=== PATIENT | female | born 1940 | race African-American/Black ===

== ENCOUNTER 2018-08-17 12:01 | Inpatient (IN) | payer MEDICARE, OTHER ==
[~2018-08-17] VITALS: Ht 157.5 cm; Wt 53.8 kg
[2018-08-17] MEDS ORDERED: CARV25TA12 PO (12:22)
[2018-08-17] MEDS ORDERED: AMLO10TA8 PO (12:22)
[2018-08-17] MEDS ORDERED: ASPI-496 PO (12:22)
[2018-08-17] MEDS ORDERED: LEVO25TA4 PO (12:22)
[2018-08-17] MEDS ORDERED: ATOR20TA PO (12:22)
[2018-08-17] MEDS ORDERED: HYDR-3342 PO (12:22)
[2018-08-17] MEDS ORDERED: ISOS30TA8 PO (12:22)
[2018-08-17] MEDS ORDERED: INSU100V8 SQ (12:24)
[2018-08-17] MEDS ORDERED: SODIUM CHLORIDE FLUSH 10ML SYR IVF ONE (12:30)
[2018-08-17] MEDS ORDERED: PLEASE ENTER ALLERGIES MC SCH (12:30)
[2018-08-17 12:35] LABS: MEAN CORPUSCULAR HEMOGLOBIN 31.9 pg (27.0-34.8); MEAN CORPUSCULAR HGB CONC 32.8 g/dL (32.4-35.8); MEAN CORPUSCULAR VOLUME 97.1 fL (80-100); MEAN PLATELET VOLUME 7.2 fL (7.4-10.4); PLATELET COUNT 200 x10^3/uL (130-400); RED BLOOD COUNT 3.38 x10^6/uL (3.82-5.3); RED CELL DISTRIBUTION WIDTH 13.4 % (9.6-15.2)
--- NOTE | 2018-08-17 12:35 | NUR ---
BIB [facility] d/t sob since last night. pt lives in [place] but visit daughter at [place] . pt has developing sob and diarrhea since last night . hx of CHF ESRD on dialysis ( m w ) . asthma with home oxygen 2 liter. pt was on 10 liters mask when arrival via [facility] in [id number] daughter at be dside
[2018-08-17 12:46] LABS: INTERNATIONAL NORMALIZED RATIO 1.02 (0.93-1.1); PROTHROMBIN TIME 10.8 Seconds (9.6-11.5)
[2018-08-17 12:48] LABS: ALBUMIN 3.7 g/dL (3.4-5.0); ANION GAP 10 mmol/L (5-15); CALCIUM 9.3 mg/dL (8.5-10.1); CHLORIDE 101 mmol/L (98-107)
[2018-08-17 12:51] LABS: MD YES; TROPONIN I 0.021 ng/mL (0.000-0.045)
[2018-08-17 12:53] LABS: <PLATELET ESTIMATE> ADEQUATE; <PLT MORPHOLOGY> NORMAL PLT MORPH; <RBC MORPHOLOGY> NORMAL; BAND#(MANUAL) 0.18 x10^3/uL; BANDS%(MANUAL) 1 % (0-7); LYMPH#(MANUAL) 0.73 x10^3/uL (1-3.4); LYMPHS% (MANUAL) 4 % (22-44); MONOS#(MANUAL) 0.37 x10^3/uL (0.3-2.7); MONOS% (MANUAL) 2 % (2-9); SEG#(MANUAL) 17.02 x10^3/uL (1.8-6.8); SEGS% (MANUAL) 93 % (42-75)
[2018-08-17] MEDS ORDERED: CEFTRIAXONE 1,000 MG in SODIUM CHLORIDE 0.9% 50 ML IVPB ONE (13:00)
[2018-08-17] MEDS ORDERED: AZITHROMYCIN 500 MG in SODIUM CHLORIDE 0.9% 250 ML IVPB ONE (13:00)
[2018-08-17] MEDS ORDERED: CEFTRIAXONE PMX 1GM/50ML 50 ML ONE (13:19)
[2018-08-17] MEDS ORDERED: DEXTROSE 50%, 50ML SYRINGE IVPush ONE (13:30)
[2018-08-17] MEDS ORDERED: CALCIUM CHLORIDE 10%, 10ML SYR IVPush ONE (13:30)
[2018-08-17] MEDS ORDERED: SODIUM CHLORIDE FLUSH 10ML SYR IVF PRN (13:30)
[2018-08-17] MEDS ORDERED: INSULIN REGULAR 100 UNITS/ML, 3ML VIAL IVPush ONE (13:30)
--- NOTE | 2018-08-17 13:46 | NUR ---
given report to hemodialysis patient care specialist
--- NOTE | 2018-08-17 13:54 | NUR ---
report given to floor rn
[2018-08-17] MEDS: HEPARIN 5,000 UNITS/ML, 1ML SQ SCH (14:30)
[2018-08-17] MEDS ORDERED: LABETALOL 5MG/ML, 20ML IVPush PRN (14:30)
[2018-08-17] MEDS ORDERED: CALCIUM GLUCONATE 4.6 MEQ in SODIUM CHLORIDE 0.9% 50 ML IV ONE (14:30)
[2018-08-17] MEDS: VANCOMYCIN 50 MG/ML ORAL SUSP PO SCH ×2 (14:30→21:09)
[2018-08-17] MEDS ORDERED: LIDOCAINE/PRILOCAINE CRM W/TEG 5GM TP ONE (14:30)
[2018-08-17 15:06] LABS: CALCIUM 9.2 mg/dL (8.5-10.1)
[2018-08-17 15:07] LABS: % IRON SATURATION 8 % (20-55); IRON LEVEL 14 mcg/dL (50-170); TOTAL IRON BINDING CAPACITY 172 mcg/dL (250-450)
[2018-08-17 15:10] LABS: TROPONIN I 0.033 ng/mL (0.000-0.045)
[2018-08-17 15:53] LABS: HEMOGLOBIN A1C 7.7 % (4.2-6.3)
[2018-08-17] MEDS: INSULIN LISPRO 100 UNITS/ML, PEN SQ-INSULIN SCH ×2 (16:00→21:10)
[2018-08-17 19:29] LABS: ANION GAP 10 mmol/L (5-15); CALCIUM 9.7 mg/dL (8.5-10.1); CHLORIDE 99 mmol/L (98-107); CREATININE 5.23 mg/dL (0.55-1.02)
[2018-08-17 20:30] LABS: TROPONIN I 0.017 ng/mL (0.000-0.045)
[2018-08-17 21:09] VITALS: BP 149/68
[2018-08-17] MEDS: ATORVASTATIN 20 MG TABLET PO SCH (21:09)
[2018-08-17] MEDS: DOXYCYCLINE 100MG CAP PO SCH (21:13)
[2018-08-18] MEDS: HEPARIN 5,000 UNITS/ML, 1ML SQ SCH ×2 (00:08→08:00)
[2018-08-18] MEDS ORDERED: ACETAMINOPHEN 325 MG TABLET PO PRN (00:30)
[2018-08-18 02:00] VITALS: BP 162/70
[2018-08-18] MEDS: VANCOMYCIN 50 MG/ML ORAL SUSP PO SCH (03:10)
[2018-08-18 05:45] LABS: ALANINE AMINOTRANSFERASE 15 U/L (12-78); ALBUMIN 3.2 g/dL (3.4-5.0); ANION GAP 11 mmol/L (5-15); CALCIUM 9.2 mg/dL (8.5-10.1); CHLORIDE 99 mmol/L (98-107); CREATININE 7.15 mg/dL (0.55-1.02)
[2018-08-18 05:48] LABS: ALKALINE PHOSPHATASE 100 U/L (45-117); BILIRUBIN,TOTAL 0.9 mg/dL (0.2-1.0)
[2018-08-18 06:40] LABS: BASOPHILS # (AUTO) 0.02 x10^3/uL (0-0.1); BASOPHILS % (AUTO) 0 % (0-1); EOSINOPHILS # (AUTO) 0.01 x10^3/uL (0-0.4); EOSINOPHILS % (AUTO) 0 % (1-7); LYMPHOCYTES % (AUTO) 7 % (22-44); MD NO; MEAN CORPUSCULAR HEMOGLOBIN 32.2 pg (27.0-34.8); MEAN CORPUSCULAR VOLUME 97.5 fL (80-100); MEAN PLATELET VOLUME 7.4 fL (7.4-10.4); MONOCYTES # (AUTO) 0.79 x10^3/uL (0.2-0.8); MONOCYTES % (AUTO) 8 % (2-9); NEUTROPHILS # (AUTO) 8.96 x10^3/uL (1.8-6.8); NEUTROPHILS % (AUTO) 86 % (42-75); PLATELET COUNT 184 x10^3/uL (130-400); RED BLOOD COUNT 3.29 x10^6/uL (3.82-5.3); RED CELL DISTRIBUTION WIDTH 13.5 % (9.6-15.2)
[2018-08-18] MEDS: INSULIN LISPRO 100 UNITS/ML, PEN SQ-INSULIN SCH ×4 (07:00→21:18)
[2018-08-18 08:17] VITALS: BP 176/50
[2018-08-18] MEDS: DOXYCYCLINE 100MG CAP PO SCH ×2 (08:46→20:59)
[2018-08-18] MEDS: ASPIRIN 81 MG TABLET EC PO SCH (08:47)
[2018-08-18] MEDS: AMLODIPINE 10 MG TAB PO SCH (08:47)
[2018-08-18] MEDS: LEVOTHYROXINE 25 MCG TABLET PO SCH (08:47)
[2018-08-18] MEDS: ISOSORBIDE MONONITRATE ER 30 MG TABLET PO SCH (08:48)
[2018-08-18] MEDS ORDERED: CARVEDILOL 25 MG TABLET PO SCH (09:00)
[2018-08-18] MEDS ORDERED: MEROPENEM 1 GM in SODIUM CHLORIDE 0.9% 100 ML IV SCH (09:00)
[2018-08-18] MEDS ORDERED: ARANESP 25 MCG/ML **ESRD SQ SCH (10:00)
[2018-08-18] MEDS: IRON SUCROSE COMPLEX 100MG/5ML IV SCH (10:26)
[2018-08-18] MEDS: CALCITRIOL 0.25 MCG CAPSULE PO SCH (10:27)
[2018-08-18 12:55] LABS: CLOSTRIDIUM DIFFICILE ANTIGEN NEGATIVE; CLOSTRIDIUM DIFFICILE TOXIN NEGATIVE (Negative)
[2018-08-18 13:01] VITALS: BP 165/64
[2018-08-18] MEDS: CARVEDILOL 12.5 MG TABLET PO SCH (17:10)
[2018-08-18 18:50] VITALS: BP 154/54
[2018-08-18] MEDS: ATORVASTATIN 20 MG TABLET PO SCH (20:59)
[2018-08-19 02:20] VITALS: BP 173/70
[2018-08-19 02:21] VITALS: BP 171/66
[2018-08-19] MEDS: CARVEDILOL 12.5 MG TABLET PO SCH ×2 (05:27→17:39)
[2018-08-19 05:32] VITALS: BP 169/54
[2018-08-19 05:54] LABS: BASOPHILS % (AUTO) 0 % (0-1); EOSINOPHILS # (AUTO) 0.15 x10^3/uL (0-0.4); EOSINOPHILS % (AUTO) 2 % (1-7); LYMPHOCYTES # (AUTO) 0.66 x10^3/uL (1-3.4); LYMPHOCYTES % (AUTO) 9 % (22-44); MD NO; MEAN CORPUSCULAR HEMOGLOBIN 34.8 pg (27.0-34.8); MEAN CORPUSCULAR HGB CONC 34.7 g/dL (32.4-35.8); MEAN CORPUSCULAR VOLUME 100.1 fL (80-100); MEAN PLATELET VOLUME 7.8 fL (7.4-10.4); MONOCYTES # (AUTO) 0.61 x10^3/uL (0.2-0.8); MONOCYTES % (AUTO) 8 % (2-9); NEUTROPHILS # (AUTO) 6.37 x10^3/uL (1.8-6.8); NEUTROPHILS % (AUTO) 82 % (42-75); PLATELET COUNT 174 x10^3/uL (130-400); RED BLOOD COUNT 2.97 x10^6/uL (3.82-5.3); RED CELL DISTRIBUTION WIDTH 13.4 % (9.6-15.2)
[2018-08-19 06:04] LABS: CHLORIDE 98 mmol/L (98-107)
[2018-08-19 06:09] LABS: ALBUMIN 3.1 g/dL (3.4-5.0); ANION GAP 11 mmol/L (5-15); CALCIUM 8.8 mg/dL (8.5-10.1); CREATININE 9.96 mg/dL (0.55-1.02)
[2018-08-19 07:54] VITALS: BP 153/61
[2018-08-19] MEDS ORDERED: LIDOCAINE/PRILOCAINE CRM W/TEG 5GM TP ONE (08:30)
[2018-08-19] MEDS: LEVOTHYROXINE 25 MCG TABLET PO SCH (08:38)
[2018-08-19] MEDS: ASPIRIN 81 MG TABLET EC PO SCH (08:38)
[2018-08-19] MEDS: CALCITRIOL 0.25 MCG CAPSULE PO SCH (08:38)
[2018-08-19] MEDS: ISOSORBIDE MONONITRATE ER 30 MG TABLET PO SCH (08:39)
[2018-08-19] MEDS: INSULIN LISPRO 100 UNITS/ML, PEN SQ-INSULIN SCH ×4 (08:40→20:42)
[2018-08-19] MEDS: IRON SUCROSE COMPLEX 100MG/5ML IV SCH (12:01)
[2018-08-19] MEDS: DILTIAZEM 125 MG in SODIUM CHLORIDE 0.9% 100 ML IV SCH (12:01)
[2018-08-19] MEDS: AMLODIPINE 10 MG TAB PO SCH (13:49)
[2018-08-19] MEDS: DOXYCYCLINE 100MG CAP PO SCH ×2 (13:53→20:39)
[2018-08-19] MEDS ORDERED: MEROPENEM 500 MG in SODIUM CHLORIDE 0.9% 100 ML IV SCH (14:00)
[2018-08-19 16:16] VITALS: BP 152/56
[2018-08-19 20:40] VITALS: BP 162/57
[2018-08-19] MEDS: ATORVASTATIN 20 MG TABLET PO SCH (20:41)
[2018-08-19] MEDS ORDERED: OMNIPAQUE 350 MG/ML, 100ML BOTTLE ONE (21:58)
[2018-08-20 01:00] VITALS: BP 160/62
[2018-08-20 05:28] LABS: BASOPHILS # (AUTO) 0.01 x10^3/uL (0-0.1); BASOPHILS % (AUTO) 0 % (0-1); EOSINOPHILS # (AUTO) 0.08 x10^3/uL (0-0.4); EOSINOPHILS % (AUTO) 1 % (1-7); LYMPHOCYTES # (AUTO) 0.67 x10^3/uL (1-3.4); LYMPHOCYTES % (AUTO) 8 % (22-44); MD NO; MEAN CORPUSCULAR HEMOGLOBIN 35.7 pg (27.0-34.8); MEAN CORPUSCULAR HGB CONC 34.8 g/dL (32.4-35.8); MEAN CORPUSCULAR VOLUME 102.7 fL (80-100); MEAN PLATELET VOLUME 7.8 fL (7.4-10.4); MONOCYTES # (AUTO) 0.61 x10^3/uL (0.2-0.8); MONOCYTES % (AUTO) 8 % (2-9); NEUTROPHILS # (AUTO) 6.76 x10^3/uL (1.8-6.8); NEUTROPHILS % (AUTO) 83 % (42-75); PLATELET COUNT 183 x10^3/uL (130-400); RED CELL DISTRIBUTION WIDTH 13.4 % (9.6-15.2)
[2018-08-20 05:32] LABS: CHLORIDE 94 mmol/L (98-107)
[2018-08-20] MEDS: CARVEDILOL 12.5 MG TABLET PO SCH ×2 (05:36→17:19)
[2018-08-20 05:40] LABS: ANION GAP 12 mmol/L (5-15); CALCIUM 9.3 mg/dL (8.5-10.1); CREATININE 7.61 mg/dL (0.55-1.02)
[2018-08-20 07:35] VITALS: BP 163/69
[2018-08-20] MEDS: AMLODIPINE 10 MG TAB PO SCH (08:14)
[2018-08-20] MEDS: DOXYCYCLINE 100MG CAP PO SCH ×2 (08:14→20:49)
[2018-08-20] MEDS: ASPIRIN 81 MG TABLET EC PO SCH (08:14)
[2018-08-20] MEDS: LEVOTHYROXINE 25 MCG TABLET PO SCH (08:15)
[2018-08-20] MEDS: ISOSORBIDE MONONITRATE ER 30 MG TABLET PO SCH (08:15)
[2018-08-20] MEDS: CALCITRIOL 0.25 MCG CAPSULE PO SCH (08:15)
[2018-08-20] MEDS ORDERED: ARANESP 25 MCG/ML **ESRD SQ SCH (08:28)
[2018-08-20] MEDS: INSULIN LISPRO 100 UNITS/ML, PEN SQ-INSULIN SCH ×4 (09:43→20:50)
[2018-08-20] MEDS: DILTIAZEM 125 MG in SODIUM CHLORIDE 0.9% 100 ML IV SCH ×2 (09:44→21:11)
[2018-08-20] MEDS ORDERED: GUAIFENESIN ER 600 MG TABLET ONE (13:15)
[2018-08-20] MEDS: GUAIFENESIN ER 600 MG TABLET PO SCH ×2 (13:17→20:50)
[2018-08-20 15:02] VITALS: BP 151/59
[2018-08-20] MEDS: IRON SUCROSE COMPLEX 100MG/5ML IV SCH (16:05)
[2018-08-20] MEDS: CEFTRIAXONE PMX 1GM/50ML 50 ML IV SCH (16:07)
[2018-08-20 16:27] VITALS: BP 151/59
[2018-08-20 19:38] VITALS: BP 155/54
[2018-08-20] MEDS: ATORVASTATIN 20 MG TABLET PO SCH (20:49)
[2018-08-21 00:08] VITALS: BP 159/61
[2018-08-21] MEDS: LEVOTHYROXINE 25 MCG TABLET PO SCH (06:15)
[2018-08-21 06:18] LABS: BASOPHILS % (AUTO) 0 % (0-1); EOSINOPHILS % (AUTO) 0 % (1-7); LYMPHOCYTES # (AUTO) 0.82 x10^3/uL (1-3.4); LYMPHOCYTES % (AUTO) 7 % (22-44); MD NO; MEAN CORPUSCULAR HEMOGLOBIN 34.3 pg (27.0-34.8); MEAN CORPUSCULAR HGB CONC 34.4 g/dL (32.4-35.8); MEAN CORPUSCULAR VOLUME 99.8 fL (80-100); MEAN PLATELET VOLUME 7.8 fL (7.4-10.4); MONOCYTES # (AUTO) 0.82 x10^3/uL (0.2-0.8); MONOCYTES % (AUTO) 7 % (2-9); NEUTROPHILS # (AUTO) 10.23 x10^3/uL (1.8-6.8); NEUTROPHILS % (AUTO) 86 % (42-75); PLATELET COUNT 210 x10^3/uL (130-400); RED BLOOD COUNT 3.34 x10^6/uL (3.82-5.3); RED CELL DISTRIBUTION WIDTH 13.4 % (9.6-15.2)
[2018-08-21 06:20] VITALS: BP 185/84
[2018-08-21] MEDS: CARVEDILOL 12.5 MG TABLET PO SCH ×2 (06:22→17:26)
[2018-08-21 06:27] LABS: ALBUMIN 3.2 g/dL (3.4-5.0); ANION GAP 11 mmol/L (5-15); CALCIUM 9.4 mg/dL (8.5-10.1); CHLORIDE 94 mmol/L (98-107)
[2018-08-21 06:32] LABS: ALANINE AMINOTRANSFERASE 21 U/L (12-78); ALKALINE PHOSPHATASE 123 U/L (45-117); BILIRUBIN,TOTAL 0.8 mg/dL (0.2-1.0); CREATININE 5.55 mg/dL (0.55-1.02); TOTAL PROTEIN 6.7 g/dL (6.4-8.2)
[2018-08-21 07:07] VITALS: BP 192/112
[2018-08-21] MEDS: DOXYCYCLINE 100MG CAP PO SCH ×2 (08:31→21:02)
[2018-08-21] MEDS: GUAIFENESIN ER 600 MG TABLET PO SCH ×2 (08:31→21:02)
[2018-08-21] MEDS: INSULIN LISPRO 100 UNITS/ML, PEN SQ-INSULIN SCH ×4 (08:31→20:59)
[2018-08-21] MEDS: DILTIAZEM 125 MG in SODIUM CHLORIDE 0.9% 100 ML IV SCH (09:51)
[2018-08-21] MEDS: AMLODIPINE 10 MG TAB PO SCH (13:16)
[2018-08-21] MEDS: CALCITRIOL 0.25 MCG CAPSULE PO SCH (13:16)
[2018-08-21] MEDS: ASPIRIN 81 MG TABLET EC PO SCH (13:16)
[2018-08-21] MEDS: ISOSORBIDE MONONITRATE ER 30 MG TABLET PO SCH (13:16)
[2018-08-21] MEDS: IRON SUCROSE COMPLEX 100MG/5ML IV SCH (13:17)
[2018-08-21 13:30] VITALS: BP 192/76
[2018-08-21] MEDS: CEFTRIAXONE PMX 1GM/50ML 50 ML IV SCH (14:39)
[2018-08-21 19:10] VITALS: BP 173/73
[2018-08-21] MEDS ORDERED: INSULIN LISPRO 100 UNITS/ML, PEN SQ-INSULIN ONE (21:00)
[2018-08-21] MEDS: AMIODARONE 200 MG TABLET PO SCH (21:02)
[2018-08-21] MEDS: ATORVASTATIN 20 MG TABLET PO SCH (21:02)
[2018-08-22 01:05] VITALS: BP 126/63
[2018-08-22 04:56] LABS: MEAN CORPUSCULAR HEMOGLOBIN 31.9 pg (27.0-34.8); MEAN CORPUSCULAR HGB CONC 33.5 g/dL (32.4-35.8); MEAN CORPUSCULAR VOLUME 95.1 fL (80-100); MEAN PLATELET VOLUME 7.8 fL (7.4-10.4); PLATELET COUNT 233 x10^3/uL (130-400); RED BLOOD COUNT 3.51 x10^6/uL (3.82-5.3); RED CELL DISTRIBUTION WIDTH 13.2 % (9.6-15.2)
[2018-08-22 05:12] LABS: ALANINE AMINOTRANSFERASE 24 U/L (12-78); ANION GAP 13 mmol/L (5-15); CALCIUM 9.5 mg/dL (8.5-10.1); CHLORIDE 93 mmol/L (98-107); CREATININE 5.61 mg/dL (0.55-1.02)
[2018-08-22 05:14] LABS: ALKALINE PHOSPHATASE 147 U/L (45-117); BILIRUBIN,TOTAL 0.7 mg/dL (0.2-1.0); TOTAL PROTEIN 6.7 g/dL (6.4-8.2)
[2018-08-22 05:44] LABS: NEUTROPHILS % (AUTO) 84 % (42-75)
[2018-08-22 05:45] LABS: BASOPHILS # (AUTO) 0.01 x10^3/uL (0-0.1); BASOPHILS % (AUTO) 0 % (0-1); EOSINOPHILS % (AUTO) 0 % (1-7); LYMPHOCYTES # (AUTO) 1.28 x10^3/uL (1-3.4); LYMPHOCYTES % (AUTO) 9 % (22-44); MD SCAN; MONOCYTES # (AUTO) 1.18 x10^3/uL (0.2-0.8); MONOCYTES % (AUTO) 8 % (2-9); NEUTROPHILS # (AUTO) 12.67 x10^3/uL (1.8-6.8)
[2018-08-22 05:49] VITALS: BP 156/66
[2018-08-22] MEDS: CARVEDILOL 12.5 MG TABLET PO SCH ×2 (05:55→17:14)
[2018-08-22] MEDS: LEVOTHYROXINE 25 MCG TABLET PO SCH (05:55)
[2018-08-22 07:10] VITALS: BP 151/70
[2018-08-22] MEDS: GUAIFENESIN ER 600 MG TABLET PO SCH ×2 (08:46→21:42)
[2018-08-22] MEDS: DOXYCYCLINE 100MG CAP PO SCH ×2 (08:46→21:43)
[2018-08-22] MEDS: AMIODARONE 200 MG TABLET PO SCH ×2 (08:47→21:43)
[2018-08-22] MEDS: IRON SUCROSE COMPLEX 100MG/5ML IV SCH (08:47)
[2018-08-22] MEDS: CALCITRIOL 0.25 MCG CAPSULE PO SCH (08:47)
[2018-08-22] MEDS: INSULIN LISPRO 100 UNITS/ML, PEN SQ-INSULIN SCH ×4 (08:48→21:49)
[2018-08-22] MEDS: ISOSORBIDE MONONITRATE ER 30 MG TABLET PO SCH (12:58)
[2018-08-22] MEDS: AMLODIPINE 10 MG TAB PO SCH (12:58)
[2018-08-22] MEDS: ASPIRIN 81 MG TABLET EC PO SCH (13:00)
[2018-08-22] MEDS: CEFTRIAXONE PMX 1GM/50ML 50 ML IV SCH (14:33)
[2018-08-22 15:29] VITALS: BP 133/58
[2018-08-22 17:12] VITALS: BP 149/68
[2018-08-22 19:53] VITALS: BP 118/54
[2018-08-22] MEDS: ATORVASTATIN 20 MG TABLET PO SCH (21:42)
[2018-08-23 01:20] VITALS: BP 143/61
[2018-08-23 05:35] VITALS: BP 169/70
[2018-08-23] MEDS: CARVEDILOL 12.5 MG TABLET PO SCH ×2 (05:39→17:31)
[2018-08-23] MEDS: LEVOTHYROXINE 25 MCG TABLET PO SCH (05:39)
[2018-08-23 08:30] VITALS: BP 152/62
[2018-08-23 08:39] LABS: BASOPHILS # (AUTO) 0.04 x10^3/uL (0-0.1); BASOPHILS % (AUTO) 0 % (0-1); EOSINOPHILS % (AUTO) 0 % (1-7); LYMPHOCYTES # (AUTO) 1.12 x10^3/uL (1-3.4); LYMPHOCYTES % (AUTO) 9 % (22-44); MD NO; MEAN CORPUSCULAR HEMOGLOBIN 33.6 pg (27.0-34.8); MEAN CORPUSCULAR HGB CONC 33.5 g/dL (32.4-35.8); MEAN CORPUSCULAR VOLUME 100.5 fL (80-100); MEAN PLATELET VOLUME 7.7 fL (7.4-10.4); MONOCYTES % (AUTO) 6 % (2-9); NEUTROPHILS # (AUTO) 10.55 x10^3/uL (1.8-6.8); NEUTROPHILS % (AUTO) 84 % (42-75); PLATELET COUNT 210 x10^3/uL (130-400); RED BLOOD COUNT 3.04 x10^6/uL (3.82-5.3); RED CELL DISTRIBUTION WIDTH 13.4 % (9.6-15.2)
[2018-08-23 08:53] LABS: ANION GAP 17 mmol/L (5-15); CALCIUM 9.2 mg/dL (8.5-10.1); CHLORIDE 87 mmol/L (98-107)
[2018-08-23] MEDS: INSULIN LISPRO 100 UNITS/ML, PEN SQ-INSULIN SCH ×4 (09:08→21:18)
[2018-08-23] MEDS: CALCITRIOL 0.25 MCG CAPSULE PO SCH (09:08)
[2018-08-23] MEDS: DOXYCYCLINE 100MG CAP PO SCH ×2 (09:09→21:09)
[2018-08-23] MEDS: ASPIRIN 81 MG TABLET EC PO SCH (09:09)
[2018-08-23] MEDS: AMIODARONE 200 MG TABLET PO SCH ×2 (09:09→21:15)
[2018-08-23] MEDS: GUAIFENESIN ER 600 MG TABLET PO SCH ×2 (09:09→21:09)
[2018-08-23 12:03] VITALS: BP 138/65
[2018-08-23] MEDS: AMLODIPINE 10 MG TAB PO SCH (12:06)
[2018-08-23] MEDS: ISOSORBIDE MONONITRATE ER 30 MG TABLET PO SCH (12:07)
[2018-08-23] MEDS: CEFTRIAXONE PMX 1GM/50ML 50 ML IV SCH (14:40)
[2018-08-23 16:35] VITALS: BP 141/65
[2018-08-23 19:44] VITALS: BP 148/60
[2018-08-23] MEDS: ATORVASTATIN 20 MG TABLET PO SCH (21:09)
[2018-08-24 03:24] VITALS: BP 154/54
[2018-08-24 05:44] VITALS: BP 177/65
[2018-08-24] MEDS: LEVOTHYROXINE 25 MCG TABLET PO SCH (05:49)
[2018-08-24] MEDS: CARVEDILOL 12.5 MG TABLET PO SCH ×2 (05:49→17:31)
[2018-08-24 06:25] VITALS: BP 167/60
[2018-08-24 06:53] LABS: ANION GAP 23 mmol/L (5-15); CALCIUM 9.4 mg/dL (8.5-10.1); CHLORIDE 84 mmol/L (98-107)
[2018-08-24 09:19] LABS: BASOPHILS # (AUTO) 0.02 x10^3/uL (0-0.1); BASOPHILS % (AUTO) 0 % (0-1); EOSINOPHILS % (AUTO) 0 % (1-7); LYMPHOCYTES # (AUTO) 1.86 x10^3/uL (1-3.4); LYMPHOCYTES % (AUTO) 12 % (22-44); MD NO; MEAN CORPUSCULAR HEMOGLOBIN 35.8 pg (27.0-34.8); MEAN CORPUSCULAR HGB CONC 35.1 g/dL (32.4-35.8); MEAN CORPUSCULAR VOLUME 102.1 fL (80-100); MONOCYTES # (AUTO) 1.01 x10^3/uL (0.2-0.8); MONOCYTES % (AUTO) 7 % (2-9); NEUTROPHILS # (AUTO) 12.68 x10^3/uL (1.8-6.8); NEUTROPHILS % (AUTO) 81 % (42-75); PLATELET COUNT 257 x10^3/uL (130-400); RED BLOOD COUNT 3.22 x10^6/uL (3.82-5.3); RED CELL DISTRIBUTION WIDTH 13.9 % (9.6-15.2)
[2018-08-24] MEDS: DOXYCYCLINE 100MG CAP PO SCH ×2 (09:46→20:36)
[2018-08-24] MEDS: ASPIRIN 81 MG TABLET EC PO SCH (09:46)
[2018-08-24] MEDS: AMLODIPINE 10 MG TAB PO SCH (09:46)
[2018-08-24] MEDS: ISOSORBIDE MONONITRATE ER 30 MG TABLET PO SCH (09:46)
[2018-08-24] MEDS: AMIODARONE 200 MG TABLET PO SCH ×2 (09:46→20:36)
[2018-08-24] MEDS: CALCITRIOL 0.25 MCG CAPSULE PO SCH (09:46)
[2018-08-24] MEDS: GUAIFENESIN ER 600 MG TABLET PO SCH ×2 (09:46→20:36)
[2018-08-24] MEDS: INSULIN LISPRO 100 UNITS/ML, PEN SQ-INSULIN SCH ×4 (09:47→20:37)
[2018-08-24 12:00] VITALS: BP 145/55
[2018-08-24] MEDS ORDERED: DOXY100C2 PO (12:27)
[2018-08-24] MEDS ORDERED: AMIO200T42 PO (12:27)
[2018-08-24] MEDS ORDERED: HYDR-3342 PO (12:27)
[2018-08-24] MEDS ORDERED: CALC0.25 PO (12:27)
[2018-08-24] MEDS ORDERED: GUAI600T31 PO (12:27)
[2018-08-24] MEDS ORDERED: PRED20TA PO (12:27)
[2018-08-24] MEDS ORDERED: CARV12.543 PO (12:27)
[2018-08-24] MEDS: CEFTRIAXONE PMX 1GM/50ML 50 ML IV SCH (13:42)
[2018-08-24 20:12] VITALS: BP 123/55
[2018-08-24] MEDS: ATORVASTATIN 20 MG TABLET PO SCH (20:36)
[2018-08-25 00:36] VITALS: BP 146/55
[2018-08-25 05:42] VITALS: BP 171/69
[2018-08-25] MEDS: LEVOTHYROXINE 25 MCG TABLET PO SCH (05:49)
[2018-08-25] MEDS: CARVEDILOL 12.5 MG TABLET PO SCH (05:49)
[2018-08-25 06:56] LABS: BASOPHILS # (AUTO) 0.01 x10^3/uL (0-0.1); BASOPHILS % (AUTO) 0 % (0-1); EOSINOPHILS # (AUTO) 0.01 x10^3/uL (0-0.4); EOSINOPHILS % (AUTO) 0 % (1-7); LYMPHOCYTES # (AUTO) 1.17 x10^3/uL (1-3.4); LYMPHOCYTES % (AUTO) 9 % (22-44); MD NO; MEAN CORPUSCULAR HEMOGLOBIN 35.4 pg (27.0-34.8); MEAN CORPUSCULAR HGB CONC 35.3 g/dL (32.4-35.8); MEAN CORPUSCULAR VOLUME 100.1 fL (80-100); MEAN PLATELET VOLUME 8.1 fL (7.4-10.4); MONOCYTES # (AUTO) 0.86 x10^3/uL (0.2-0.8); MONOCYTES % (AUTO) 7 % (2-9); NEUTROPHILS % (AUTO) 84 % (42-75); PLATELET COUNT 245 x10^3/uL (130-400); RED CELL DISTRIBUTION WIDTH 13.9 % (9.6-15.2)
[2018-08-25 07:11] LABS: ALANINE AMINOTRANSFERASE 27 U/L (12-78); ALBUMIN 3.2 g/dL (3.4-5.0); ANION GAP 14 mmol/L (5-15); CHLORIDE 93 mmol/L (98-107); CREATININE 6.84 mg/dL (0.55-1.02)
[2018-08-25 07:13] LABS: ALKALINE PHOSPHATASE 149 U/L (45-117); BILIRUBIN,TOTAL 1.2 mg/dL (0.2-1.0); TOTAL PROTEIN 6.8 g/dL (6.4-8.2)
[2018-08-25 07:34] VITALS: BP 145/58
[2018-08-25] MEDS: INSULIN LISPRO 100 UNITS/ML, PEN SQ-INSULIN SCH ×2 (07:53→11:37)
[2018-08-25] MEDS: CALCITRIOL 0.25 MCG CAPSULE PO SCH (07:53)
[2018-08-25] MEDS: ISOSORBIDE MONONITRATE ER 30 MG TABLET PO SCH (07:55)
[2018-08-25] MEDS: AMLODIPINE 10 MG TAB PO SCH (07:55)
[2018-08-25] MEDS: DOXYCYCLINE 100MG CAP PO SCH (07:55)
[2018-08-25] MEDS: GUAIFENESIN ER 600 MG TABLET PO SCH (07:55)
[2018-08-25] MEDS: ASPIRIN 81 MG TABLET EC PO SCH (07:55)
[2018-08-25] MEDS: AMIODARONE 200 MG TABLET PO SCH (07:55)
== END 2018-08-25 12:20 | DRG 871 ==
LOC: ED 13:00 → EDIP 13:25 → 4WST 15:43
PROVIDERS: ADMIT Internal Medicine; ATTEND Internal Medicine
PROC: 5A1D70Z Performance of Urinary Filtration, Intermittent, Less than 6 Hours Per Day (ICD-10-PCS; principal; 2018-08-17)
PROC: 5A1D70Z Performance of Urinary Filtration, Intermittent, Less than 6 Hours Per Day (ICD-10-PCS; 2018-08-19)
PROC: 5A1D70Z Performance of Urinary Filtration, Intermittent, Less than 6 Hours Per Day (ICD-10-PCS; 2018-08-20)
PROC: 5A1D70Z Performance of Urinary Filtration, Intermittent, Less than 6 Hours Per Day (ICD-10-PCS; 2018-08-21)
PROC: 5A1D70Z Performance of Urinary Filtration, Intermittent, Less than 6 Hours Per Day (ICD-10-PCS; 2018-08-24)
DX: A41.9 Sepsis, unspecified organism (principal); N18.6 End stage renal disease; J18.9 Pneumonia, unspecified organism; J96.21 Acute and chronic respiratory failure with hypoxia; I50.43 Acute on chronic combined systolic (congestive) and diastolic (congestive) heart failure; E43 Unspecified severe protein-calorie malnutrition; I13.2 Hypertensive heart and chronic kidney disease with heart failure and with stage 5 chronic kidney disease, or end stage renal disease; E87.1 Hypo-osmolality and hyponatremia; R04.2 Hemoptysis; J45.901 Unspecified asthma with (acute) exacerbation; E87.70 Fluid overload, unspecified; I25.10 Atherosclerotic heart disease of native coronary artery without angina pectoris; E87.5 Hyperkalemia; E11.22 Type 2 diabetes mellitus with diabetic chronic kidney disease; E03.9 Hypothyroidism, unspecified; D63.1 Anemia in chronic kidney disease; I48.0 Paroxysmal atrial fibrillation; I05.0 Rheumatic mitral stenosis; T38.0X5A Adverse effect of glucocorticoids and synthetic analogues, initial encounter; I45.81 Long QT syndrome; N25.0 Renal osteodystrophy; I35.8 Other nonrheumatic aortic valve disorders; Z99.81 Dependence on supplemental oxygen; Z95.5 Presence of coronary angioplasty implant and graft; Z87.01 Personal history of pneumonia (recurrent); Z83.3 Family history of diabetes mellitus; Z88.2 Allergy status to sulfonamides; Z99.2 Dependence on renal dialysis; Z68.21 Body mass index [BMI] 21.0-21.9, adult
CPT/HCPCS: 36415; 71045; 71250; 71275; 80048; 80053; 80069; 82040; 82306; 82310; 82728; 82947; 82962; 83036; 83540; 83550; 83605; 83735; 83880; 83970; 84100; 84145; 84443; 84484; 85025; 85610; 85730; 86704; 86706; 87040; 87046; 87324; 87340; 87427; 89055; 93005; 93306; 96374; 99285; G0378; J0610; J0696; J0882; J1644; J1756; J2185; J3370; Q9967; J1815; J7512